=== PATIENT | female | born 1980 | race Caucasian/White ===

== ENCOUNTER 2021-07-01 00:28 | Emergency (ER) | payer BC, MEDICAID ==
[~2021-07-01] VITALS: Ht 157.5 cm; Wt 54.4 kg
[~2021-07-01 00:28] MED LIST: AMOX500T2 PO; FLUT1DIS3 IH; HYDR-3919 PO; IBUP-786 PO
[2021-07-01 00:35] VITALS: BP_SYST 155
--- NOTE | 2021-07-01 00:35 | NUR ---
Patient triaged and placed in waiting room. VSS and patient appears in no acute distress at this time. awaiting available bed, and MD notified of need for MSE.
--- NOTE | 2021-07-01 02:00 | NUR ---
Call pt in the waiting room. No answer.
--- NOTE | 2021-07-01 02:05 | NUR ---
Call pt in the waiting room. No answer.
--- NOTE | 2021-07-01 02:10 | NUR ---
Call pt in the waiting room. No answer.
--- NOTE | 2021-07-01 05:00 | NUR ---
Pt came back.state she fell asleep in her car.
--- NOTE | 2021-07-01 05:05 | NUR ---
ER examining pt in the triage.
[2021-07-01] MEDS ORDERED: ANURH RC (05:19)
[2021-07-01 06:01] LABS: BILIRUBIN,URINE NEGATIVE (NEGATIVE); BLOOD, URINE NEGATIVE (NEGATIVE); CLARITY/URINE SLIGHTLY CLOUDY (CLEAR); COLOR,URINE YELLOW (YELLOW); GLUCOSE,URINE NEGATIVE (NEGATIVE); KETONES,URINE NEGATIVE (NEGATIVE); LEUKOCYTE ESTERASE ,URINE TRACE (NEGATIVE); NITRITE, URINE NEGATIVE (NEGATIVE); PH,URINE 7.5 (5.0-8.0); PROTEIN URINE NEGATIVE (NEGATIVE); UROBILINOGEN,URINE 0.2 (0.2-1.0)
[2021-07-01 06:15] VITALS: BP_SYST 138
--- NOTE | 2021-07-01 06:15 | NUR ---
Patient given written and verbal discharge instructions by Dr De Souza and verbalizes understanding. ER MD discussed with patient the results and treatment provided. Patient in stable condition. ID arm band removed. Rx of Hydrocortisone acetate given. Patient educated on pain management and to follow up with PMD. Pain Scale 0/10. Opportunity for questions provided and answered. Medication side effect fact sheet provided.
[2021-07-01 06:31] LABS: BACTERIA,URINE MODERATE /HPF (None Seen); RBC,URINE 0-3 /HPF (0-3)
[2021-07-01 06:32] LABS: MUCUS,URINE None Seen /LPF (None Seen)
== END 2021-07-01 06:15 | disposition home or self-care (01) ==
LOC: SED 00:28
DX: Z53.21 Procedure and treatment not carried out due to patient leaving prior to being seen by health care provider (principal); J45.909 Unspecified asthma, uncomplicated; Z88.2 Allergy status to sulfonamides; Z88.8 Allergy status to other drugs, medicaments and biological substances
CPT/HCPCS: 81000; 87086; 99283

== ENCOUNTER 2022-02-26 16:12 | Emergency (ER) | payer MEDICAID ==
[~2022-02-26] VITALS: Ht 157.5 cm; Wt 56.7 kg
[~2022-02-26 16:12] MED LIST changes: +ANURH RC
[2022-02-26 16:26] VITALS: BP_SYST 122
--- NOTE | 2022-02-26 16:32 | NUR ---
BIBS WITH C/C OF RIGHT FLANK PAIN FOR 1 WEEK. PT WITH HX OF FREQUENT UTI. PT CURRENTLY HOMELESS AND LIVES IN CAR. PT HAS HX OF STAYING AT A COVID RESTRICTED FACILITY AND WAS GIVEN KEFLEX FOR UTI. PT DID NOT COMPLETE KEFLEX DOSE DUE TO NAUSEA AND HAD LEFT OVER PILLS. PT TOOK A DOSE OF LEFT OVER ANTIBIOTICS TODAY. REPORTS PAINFUL URINATION, FREQUENCY IN URINATION, AND PAIN 7/10. PT ALSO REPORTS HAVING HER MENSES 3 TIMES THIS MONTH. PT WITH HX OF ANEMIA.
--- NOTE | 2022-02-26 16:36 | NUR ---
DR. HANKINS SEEN PT IN TRIAGE ROOM.
--- NOTE | 2022-02-26 16:37 | NUR ---
PT PLACED IN ROOM 7, REPORT GIVEN TO ASYA BEARDEN.
[2022-02-26] MEDS ORDERED: NACL 0.9% 1,000 ML IV ONE (16:45)
[2022-02-26] MEDS ORDERED: cefTRIAXone 1 GM IVPB PREMIX 50 ML IV ONE (16:45)
[2022-02-26] MEDS ORDERED: KETOROLAC TROMETHAMINE 30 MG VIAL IVP ONE (16:45)
[2022-02-26 17:06] LABS: BASOPHILS # (AUTO) 0.1 K/uL (0.0-0.2); BASOPHILS % (AUTO) 0.9 % (0.0-2.0); EOSINOPHILS % (AUTO) 0.4 % (0.0-4.0); HEMATOCRIT 31.4 % (36-48); LYMPHOCYTES % (AUTO) 22.3 % (20.5-51.5); MEAN CORPUSCULAR VOLUME 69 fL (79.0-98.0); MONOCYTES # (AUTO) 0.7 K/uL (0.0-1.0); MONOCYTES % (AUTO) 7.7 % (1.7-9.3); NEUTROPHILS % (AUTO) 68.7 % (40.0-70.0); PLATELET COUNT (AUTO) 246 K/uL (130-430); RED BLOOD CELL COUNT(AUTO) 4.54 MIL/uL (4.2-6.2); RED CELL DISTRIBUTION WIDTH 24.2 % (9.0-15.0); WHITE BLOOD COUNT (AUTO) 8.8 K/uL (4.8-10.8)
--- NOTE | 2022-02-26 17:20 | NUR ---
Pt. TAKEN TO CT SCAN
[2022-02-26 17:40] LABS: BILIRUBIN,URINE NEGATIVE (NEGATIVE); BLOOD, URINE 3+ (NEGATIVE); CLARITY/URINE TURBID (CLEAR); COLOR,URINE RED (YELLOW); GLUCOSE,URINE NEGATIVE (NEGATIVE); KETONES,URINE NEGATIVE (NEGATIVE); LEUKOCYTE ESTERASE ,URINE TRACE (NEGATIVE); NITRITE, URINE NEGATIVE (NEGATIVE); PROTEIN URINE 3+ (NEGATIVE); UROBILINOGEN,URINE 0.2 (0.2-1.0)
[2022-02-26 17:41] LABS: CALCIUM 8.9 mg/dL (8.4-11.0); CREATININE 0.75 mg/dL (0.55-1.30); POTASSIUM 3.6 mmol/L (3.5-5.1)
[2022-02-26 17:46] LABS: ALBUMIN 3.6 g/dL (3.4-4.8); TOTAL BILIRUBIN 0.2 mg/dL (0.0-1.0)
[2022-02-26 18:01] LABS: BACTERIA,URINE FEW /HPF (None Seen); MUCUS,URINE None Seen /LPF (None Seen); RBC,URINE >100 /HPF (0-3); URINE AMORPHOUS URATE 2+ /HPF (None Seen)
[2022-02-26] MEDS ORDERED: NITR-85 PO (18:53)
[2022-02-26] MEDS ORDERED: NAPR-690 PO (18:53)
[2022-02-26 19:06] VITALS: BP_SYST 135
--- NOTE | 2022-02-26 21:38 | NUR ---
Patient given written and verbal discharge instructions and verbalizes understanding. ER MD discussed with patient the results and treatment provided. Patient in stable condition. ID arm band removed. IV catheter removed intact and dressing applied, no active bleeding. Rx of Naproxen and Macrobid given. Patient educated on pain management and to follow up with PMD. Pain Scale 2/10 . Opportunity for questions provided and answered. Medication side effect fact sheet provided.
== END 2022-02-26 19:00 | disposition home or self-care (01) ==
LOC: SED 16:12
DX: N23 Unspecified renal colic (principal); N39.0 Urinary tract infection, site not specified; J45.909 Unspecified asthma, uncomplicated; Z88.2 Allergy status to sulfonamides; Z91.040 Latex allergy status; Z79.899 Other long term (current) drug therapy
CPT/HCPCS: 99284; 74176; 96365; 96375; 80053; 81000; 85025; 87040; 87086; 36415; 76376; 81025; 83605; J0696; J1885

== ENCOUNTER 2023-02-23 13:42 | Emergency (ER) | payer MEDICAID ==
[~2023-02-23] VITALS: Ht 157.5 cm; Wt 53.1 kg
[~2023-02-23 13:42] MED LIST changes: +NAPR-690 PO; +NITR-85 PO
[2023-02-23 14:48] VITALS: BP_SYST 143; PULSE 99; RESP 18; TEMP 97.6; O2SAT 98
[2023-02-23] MEDS ORDERED: CLOB15OI17 TP (15:08)
[2023-02-23] MEDS ORDERED: CYPR4TAB50 PO (15:08)
[2023-02-23] MEDS ORDERED: DOXY100C5 PO (15:08)
[2023-02-23 16:24] VITALS: BP_SYST 134; PULSE 95; RESP 18; TEMP 97.6; O2SAT 98
== END 2023-02-23 16:26 | disposition home or self-care (01) ==
LOC: SED 13:42
DX: L25.9 Unspecified contact dermatitis, unspecified cause (principal); R21 Rash and other nonspecific skin eruption; J45.909 Unspecified asthma, uncomplicated; Z88.2 Allergy status to sulfonamides; Z91.040 Latex allergy status; Z79.899 Other long term (current) drug therapy
CPT/HCPCS: 99283